=== PATIENT | female | born 1990 | race Caucasian/White ===

== ENCOUNTER 2017-01-09 21:09 | Emergency (ER) | payer BC ==
[~2017-01-09] VITALS: Ht 157.5 cm; Wt 55.0 kg
[2017-01-09 21:11] VITALS: BP 144/67; PULSE 130; RESP 18; TEMP 98.1; O2SAT 95
[2017-01-09 21:14] VITALS: BP 146/77; PULSE 124; RESP 25; O2SAT 97
[2017-01-09] MEDS ORDERED: HYDROCORTISONE SOD SUCCINATE 100 MG VIAL IV PUSH ONE (21:15)
[2017-01-09] MEDS ORDERED: SODIUM CHLOR 0.9% 1000 ML INJ 1,000 ML IV ONE (21:15)
[2017-01-09 21:28] VITALS: O2SAT 97
[2017-01-09] MEDS ORDERED: b12 (21:32)
[2017-01-09] MEDS ORDERED: ZOLO50TA PO (21:32)
[2017-01-09] MEDS ORDERED: TIZA4CAP3 PO (21:32)
[2017-01-09] MEDS ORDERED: GABA100C4 PO (21:32)
[2017-01-09] MEDS ORDERED: SERO200T PO (21:32)
[2017-01-09] MEDS ORDERED: HYDR10TA65 PO (21:32)
--- NOTE | 2017-01-09 21:35 | PD ---
HPI Chief Complaint: Pain: Acute or Chronic Time Seen by Provider: 21:15 Travel History International Travel<30 days: No Contact w/Intl Traveler<30days: No Traveled to known affect area: No History of Present Illness HPI 26-year-old female complains of body pain. Patient has history of [place] disease and has frequent crisis with body pain in the past. Patient is visiting [facility] for the races and started having body pain this afternoon. Patient denies any recent injury. Patient denies any fever chills. Patient denies any coughing congestion. Patient denies any nausea vomiting diarrhea. Patient is on Florinef daily. PFS Past Medical History LMP: ON MIRANA Social History Tobacco Use: No Allergies-Medications (Allergen,Severity, Reaction): Coded Allergies: No Known Allergies (Unverified , 01/09/17) Reported Meds & Prescriptions Reported Meds & Active Scripts Active Reported Tizanidine (Tizanidine HCl) 4 Mg Cap 4 Mg PO TID Seroquel (Quetiapine Fumarate) 200 Mg Tab 200 Mg PO HS [b12] Gabapentin 100 Mg Cap 100 Mg PO QID Hydrocortisone 10 Mg Tab 10 Mg PO DAILY Take with food to decrease GI upset Zoloft (Sertraline HCl) 50 Mg Tab 50 Mg PO DAILY Review of Systems General / Constitutional: No: Fever Eyes: No: Visual changes HENT: No: Headaches Cardiovascular: No: Chest Pain or Discomfort Respiratory: No: Shortness of Breath Gastrointestinal: No: Abdominal Pain Genitourinary: No: Dysuria Musculoskeletal: Positive: Pain Skin: No Rash Neurologic: No: Weakness Psychiatric: No: Depression Endocrine: No: Polydipsia Hematologic/Lymphatic: No: Easy Bruising Physical Exam Narrative GENERAL: Well-nourished, well-developed patient. SKIN: Warm and dry. HEAD: Normocephalic. EYES: No scleral icterus. No injection or drainage. NECK: Supple, trachea midline. No JVD or lymphadenopathy. CARDIOVASCULAR: Regular rate and rhythm without murmurs, gallops, or rubs. RESPIRATORY: Breath sounds equal bilaterally. No accessory muscle use. GASTROINTESTINAL: Abdomen soft, non-tender, nondistended. MUSCULOSKELETAL: No cyanosis, or edema. Patient has diffuse tenderness over extremity. No redness no heat no swelling no deformity noted. BACK: Nontender without obvious deformity. No CVA tenderness. Neurologic exam: Patient's awake and alert oriented 3. No obvious focal neurological deficit. Data Data Last Documented VS Vital Signs Date Time Temp Pulse Resp B/P Pulse Ox O2 Delivery O2 Flow Rate FiO2 01/09/17 22:27 104 16 115/72 95 01/09/17 21:28 Room Air 01/09/17 21:11 98.1 Orders Complete Blood Count With Diff (01/09/17 21:15) Comprehensive Metabolic Panel (01/09/17 21:15) Creatine Kinase (Cpk) (01/09/17 21:15) Iv Access Insert/Monitor (01/09/17 21:15) Ecg Monitoring (01/09/17 21:15) Oximetry (01/09/17 21:15) Sodium Chlor 0.9% 1000 Ml Inj (Ns 1000 M (01/09/17 21:15) Hydrocortisone Inj (Solucortef Inj) (01/09/17 21:15) Ketorolac Inj (Toradol Inj) (01/09/17 21:45) Labs Laboratory Tests Test 01/09/17 21:20 White Blood Count 16.1 TH/MM3 Red Blood Count 4.32 MIL/MM3 Hemoglobin 12.4 GM/DL Hematocrit 36.5 % Mean Corpuscular Volume 84.5 FL Mean Corpuscular Hemoglobin 28.8 PG Mean Corpuscular Hemoglobin 34.0 % Concent Red Cell Distribution Width 12.0 % Platelet Count 317 TH/MM3 Mean Platelet Volume 7.3 FL Neutrophils (%) (Auto) 76.2 % Lymphocytes (%) (Auto) 15.3 % Monocytes (%) (Auto) 8.3 % Eosinophils (%) (Auto) 0.1 % Basophils (%) (Auto) 0.1 % Neutrophils # (Auto) 12.3 TH/MM3 Lymphocytes # (Auto) 2.5 TH/MM3 Monocytes # (Auto) 1.3 TH/MM3 Eosinophils # (Auto) 0.0 TH/MM3 Basophils # (Auto) 0.0 TH/MM3 CBC Comment DIFF FINAL Differential Comment Sodium Level 137 MEQ/L Potassium Level 3.7 MEQ/L Chloride Level 101 MEQ/L Carbon Dioxide Level 23.7 MEQ/L Anion Gap 12 MEQ/L Blood Urea Nitrogen 12 MG/DL Creatinine 0.64 MG/DL Estimat Glomerular Filtration 114 ML/MIN Rate Random Glucose 100 MG/DL Calcium Level 8.7 MG/DL Total Bilirubin 0.4 MG/DL Aspartate Amino Transf 14 U/L (AST/SGOT) Alanine Aminotransferase 20 U/L (ALT/SGPT) Alkaline Phosphatase 72 U/L Total Creatine Kinase 88 U/L Total Protein 7.9 GM/DL Albumin 4.2 GM/DL MDM Medical Decision Making Medical Screen Exam Complete: Yes Emergency Medical Condition: Yes Interpretation(s) 22:22 PM. CBC WBC 16.1. 76 neutrophil. CMP within normal limit. Differential Diagnosis Differential diagnosis including musculoskeletal, addisonian crisis, dehydration , electrolyte imbalance. Narrative Course 26-year-old female with diffuse extremity pain. 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 Normal saline solution 1 L IV bolus. Hydrocortisone 100 mg IV given. Toradol 30 mg IV given. 20-23 PM. Patient states that she is feeling better and wants to go home. Diagnosis Primary Impression: Addisonian crisis Patient Instructions: General Instructions Additional Instructions: Continue with medication at home. Follow-up with personal physician. Return as needed. Med/Other Pt SpecificInfo: No Change to Meds Disposition: 01 DISCHARGE HOME Condition: Stable David Fields MD Jan 09, 2017 21:35
[2017-01-09 21:41] LABS: AUTOMATED NEUTROPHIL # 12.3 TH/MM3 (1.8-7.7); BASOPHIL % 0.1 % (0.0-2.0); EOSINOPHIL % 0.1 % (0.0-4.0); HEMATOCRIT 36.5 % (35.0-46.0); HEMO FLAGS DIFF FINAL; LYMPH % 15.3 % (9.0-44.0); LYMPHOCYTE # 2.5 TH/MM3 (1.0-4.8); MEAN CELL VOLUME 84.5 FL (80.0-100.0); MEAN CORPUSCULAR HEMOGLOBIN 28.8 PG (27.0-34.0); MONO % 8.3 % (0.0-8.0); NEUT % 76.2 % (16.0-70.0); PLATELET COUNT 317 TH/MM3 (150-450); RED BLOOD COUNT 4.32 MIL/MM3 (4.00-5.30); WHITE BLOOD COUNT 16.1 TH/MM3 (4.0-11.0)
[2017-01-09] MEDS ORDERED: KETOROLAC TROMETHAMINE 30 MG/ML (IVP) VIAL IV PUSH ONE (21:45)
[2017-01-09 21:58] LABS: ANION GAP 12 MEQ/L (5-15); AST (GOT) 14 U/L (15-37); BICARBONATE 23.7 MEQ/L (21.0-32.0); BLOOD UREA NITROGEN 12 MG/DL (7-18); CHLORIDE 101 MEQ/L (98-107); GLOMERULAR FILTRATION RATE 114 ML/MIN (>89); POTASSIUM 3.7 MEQ/L (3.5-5.1); SODIUM (NA) 137 MEQ/L (136-145)
[2017-01-09 22:01] LABS: ALKALINE PHOSPHATASE 72 U/L (45-117); ALT (GPT) 20 U/L (10-53); TOTAL BILIRUBIN ADULT 0.4 MG/DL (0.2-1.0)
[2017-01-09 22:03] LABS: CREATINE KINASE 88 U/L (26-192)
[2017-01-09 22:27] VITALS: BP 115/72
== END 2017-01-09 22:36 | disposition home or self-care (01) ==
LOC: NEPC 21:09
DX: E27.2 Addisonian crisis (principal)
CPT/HCPCS: 80053; 82550; 85025; 96361; 96374; 96375; 99283; J1720; J1885; J7030